=== PATIENT | female | born 1995 | race Caucasian/White ===

== ENCOUNTER → 2017-11-22 15:45 | Outpatient (REF) | payer OTHER, SELFPAY ==
[2017-11-25 15:19] LABS: Chlamydia Result Negative; GC Result Negative
== END ==
LOC: LBN 15:45
PROVIDERS: PCP Pediatrics; Visit Provider Nurse Practitioner Women's Health
DX: Z11.3 Encounter for screening for infections with a predominantly sexual mode of transmission (principal)
CPT/HCPCS: 87491; 87591

== ENCOUNTER 2018-04-11 13:50 | Outpatient (REF) | payer OTHER, SELFPAY ==
--- NOTE | 2018-04-11 13:15 | PAPFT_PTH ---
PATIENT: Libra Syed LOC: [facility] U#:[id number] AGE/SX: 23/F ROOM: RE04/11/[address]: Eliana Quach NP : 1995 BED: DIS: 04/11/2018 SPEC #: [id number] RECD: 04/11/18 17:50 STATUS: NONA REJak #: [id number] TATI: 04/11/18 13:[address]: Eliana Quach NP DEPT: [facility] Cytology RECD BY: Marisel Singleton ENTERED: 04/11/18 17:50 SP TYPE: PAPFT OT DR: Ana Elias MD Tissues: 1 - CX/ENDOCX FOR PAP SMEARS Procedures: PAP THIN PREP/[facility] Screening Comments: [id number]
== END 2018-04-11 14:10 ==
LOC: LBN 13:50
PROVIDERS: PCP Pediatrics; Visit Provider Nurse Practitioner Women's Health
DX: Z12.4 Encounter for screening for malignant neoplasm of cervix (principal)
CPT/HCPCS: 88142

== ENCOUNTER 2020-01-12 11:46 | Outpatient (REF) | payer OTHER, SELFPAY ==
[2020-01-12 19:14] LABS: ALT 29 U/L (14-59); AST 20 U/L (15-37); Albumin 3.7 g/dL (3.4-5.0); Alkaline Phosphatase 78 U/L (46-116); Anion Gap 9.1 mmol/L (3-11); BUN 11 mg/dL (7-18); Bilirubin, Total 0.3 mg/dL (0.2-1.0); CO2 25.9 mmol/L (21.0-32.0); CREATININE 0.98 mg/dL (0.55-1.02); Calcium 9.3 mg/dL (8.5-10.1); Chloride 106 mmol/L (98-107); Glucose 74 mg/dL (74-106); Potassium 4.2 mmol/L (3.5-5.1); Sodium 141 mmol/L (136-145); TSH (W/Ref FT4) 1.11 uIU/mL (0.36-3.74)
== END 2020-01-12 12:06 ==
LOC: NCHCN 11:46
PROVIDERS: Visit Provider Nurse Practitioner
DX: K59.00 Constipation, unspecified (principal); Z13.29 Encounter for screening for other suspected endocrine disorder
CPT/HCPCS: 80053; 84443

== ENCOUNTER 2020-03-07 05:56 | Outpatient (REF) | payer OTHER, SELFPAY ==
[2020-03-10 06:55] LABS: Patient Race White; SARS-CoV-2 RNA Undetected (Undetected); SARS-CoV-2 Specimen Source Nasal
== END 2020-03-07 06:16 ==
LOC: NCHCN 05:56
PROVIDERS: PCP Nurse Practitioner Family; Visit Provider Nurse Practitioner Family
DX: Z20.828 Contact with and (suspected) exposure to other viral communicable diseases (principal)
CPT/HCPCS: U0003

== ENCOUNTER 2020-09-14 09:50 | Outpatient (REF) | payer OTHER, SELFPAY ==
--- NOTE | 2020-09-14 09:15 | PAPFT_PTH ---
PATIENT: Libra Syed LOC: [facility] U#:[id number] AGE/SX: 25/F ROOM: RE09/14/[address]: Eliana Quach NP : 1995 BED: DIS: 09/14/2020 SPEC #: [id number] RECD: 09/14/20 12:52 STATUS: NONA BRYAN #: [id number] TATI: 09/14/20 09:[address]: Eliana Quach NP DEPT: [facility] Cytology RECD BY: Marisel Singleton ENTERED: 09/14/20 12:52 SP TYPE: PAPFT OTHR DR: Alex Sosa Tissues: 1 - CX/ENDOCX FOR PAP SMEARS Procedures: PAP THIN PREP/[facility] Screening Comments: [id number]
== END 2020-09-14 09:51 | disposition home or self-care (01) ==
LOC: LBN 09:50
PROVIDERS: PCP Nurse Practitioner Family; Visit Provider Nurse Practitioner Women's Health
DX: Z12.4 Encounter for screening for malignant neoplasm of cervix (principal)
CPT/HCPCS: 88142

== ENCOUNTER 2020-10-13 11:31 | Outpatient (REF) | payer OTHER, SELFPAY ==
[2020-10-13 19:19] LABS: HCT 37.8 % (36.0-46.0); HGB 12.1 g/dL (11.2-15.7); MCH 29.3 pg (27.0-33.0); MCV 91.5 fL (80-95); MPV 10.1 fL (8.0-11.0); Platelet Count 385 10^3/uL (130-400); RBC 4.13 10^6/uL (3.93-5.22); RDW 12.2 % (11.7-14.6); RDW-SD 40.8 fL; WBC 9.84 10^3/uL (4.4-10.8)
[2020-10-13 19:43] LABS: TSH (W/Ref FT4) 0.78 uIU/mL (0.36-3.74)
== END 2020-10-13 11:32 | disposition home or self-care (01) ==
LOC: NCHCN 11:31
PROVIDERS: PCP Nurse Practitioner Family; Visit Provider Family Medicine
DX: R53.83 Other fatigue (principal); R63.5 Abnormal weight gain
CPT/HCPCS: 85027; 84443